=== PATIENT | male | born 1960 | race Caucasian/White ===

== ENCOUNTER 2020-10-20 09:40 | Inpatient (IN) | payer BC ==
[2020-10-16 11:32] LABS: Basophils # (auto) 0 10 ^3/uL (0-0.2); Basophils % (auto) 0.6 % (0.0-2.0); Eosinophils # (auto) 0.2 10 ^3/uL (0-0.8); Eosinophils % (auto) 2.7 % (0.0-7.0); Hematocrit 46.3 % (41.0-53.0); Hemoglobin 15.3 g/dL (13.5-17.5); Lymphocytes % (auto) 14.3 % (10.0-50.0); Mean Corpuscular Hemoglobin 29.1 pg (28.0-32.0); Mean Corpuscular Volume 88.2 fL (80.0-100.0); Monocytes # (auto) 0.7 10 ^3/uL (0-1.3); Monocytes % (auto) 9.2 % (0.0-12.0); Neutrophils # (auto) 5.3 10 ^3/uL (1.6-8.6); Neutrophils % (auto) 73.2 % (37.0-80.0); Platelet Count (auto) 218 10^3/uL (140-450); Red Blood Cells 5.25 10^6/uL (4.5-5.90); Red Cell Distribution Width 13.9 % (11.8-14.3); White Blood Cell 7.3 10^3/uL (4.4-10.8)
[2020-10-16 11:46] LABS: Urine Bacteria NONE SEEN /hpf (None Seen); Urine Blood 1+ /uL (Negative); Urine Specific Gravity 1.024 (1.001-1.035); Urine WBC 10 /hpf (0 - 3)
[2020-10-16 11:55] LABS: INR 0.97 (0.9-1.15); Partial Thromboplastin Time 27.3 sec (23.0-31.2)
[2020-10-16 12:30] LABS: Potassium 4.3 mmol/L (3.5-5.1)
[2020-10-16 12:53] LABS: Albumin 3.3 g/dL (3.4-5.0); Bilirubin, Total 0.3 mg/dL (0.2-1.0); Total Protein 7.2 g/dL (6.4-8.2)
[~2020-10-20] VITALS: Ht 188 cm; Wt 94.3 kg
[~2020-10-20 09:40] MED LIST: LISI-648 PO; METO-169 PO
[2020-10-20] MEDS ORDERED: LIDOCAINE W/ EPINEPHRINE 1% 20ML VIAL ONE (10:31)
[2020-10-20] MEDS ORDERED: BUPIVACAINE 0.25% INJ 50ML VIAL ONE (10:32)
[2020-10-20] MEDS ORDERED: CLINDAMYCIN 600MG IV 50 ML IV ONE (10:50)
[2020-10-20] MEDS ORDERED: LIDOCAINE 1% (LOCAL ANESTH.) PF 5ml SDV ONE (11:38)
[2020-10-20] MEDS ORDERED: SUCCINYLCHOLINE CHLORIDE 20 MG/ML 10ML VIAL IV ONE (11:39)
[2020-10-20] MEDS ORDERED: MIDAZOLAM HCL 1MG/1ML-2 ML VIAL ONE (11:42)
[2020-10-20] MEDS ORDERED: METOCLOPRAMIDE HCL 5MG/ml INJ 2ml VIAL ONE (11:43)
[2020-10-20] MEDS ORDERED: ETOMIDATE (2MG/ML) 20ML VIAL IV ONE (11:44)
[2020-10-20] MEDS ORDERED: ROCURONIUM 10MG/ML 10ML VIAL IV ONE (11:44)
[2020-10-20] MEDS ORDERED: ACETAMINOPHEN/CODEINE#3 (300/30mg) TAB PO PRN (11:45)
[2020-10-20] MEDS ORDERED: NITROGLYCERIN 0.4 MG SL TAB SL PRN (11:45)
[2020-10-20] MEDS ORDERED: D5W/SOD CHL 0.45% 1,000 ML IV SCH (11:45)
[2020-10-20] MEDS ORDERED: ONDANSETRON HCL 4 MG/2 ML VIAL IV PRN ×2 (11:45→12:15)
[2020-10-20] MEDS ORDERED: diphenhdrAMINE HCL 50 MG/1 ML VL IV PRN (11:45)
[2020-10-20] MEDS ORDERED: MORPHINE SULF INJ 2 MG/ML SYRINGE 1ML IV PRN (11:45)
[2020-10-20] MEDS ORDERED: fentaNYL CITRATE 100 MCG/2 ML VL ONE (11:54)
[2020-10-20] MEDS ORDERED: hydrALAZINE HCL 20 MG/ML VL IV PRN (12:15)
[2020-10-20] MEDS ORDERED: NALOXONE HCL 0.4 MG/ML VIAL IV PRN (12:15)
[2020-10-20] MEDS ORDERED: HYDROmorphone HCL 2 MG/ML VL IV PRN ×2 (12:15)
[2020-10-20] MEDS ORDERED: MEPERIDINE HCL (25 MG/ML) 1ML VIAL ONE (13:32)
[2020-10-20] MEDS ORDERED: NEOSTIGMINE 1 MG/ML INJ (10mg/10ML VIAL) ONE (13:57)
[2020-10-20] MEDS ORDERED: GLYCOPYRROLATE 0.2 MG/ML 1ML VIAL ONE (13:57)
[2020-10-20] MEDS ORDERED: ALBUTEROL SULF 2.5 MG/0.5ML(0.5%) NEB SOLN ONE (14:33)
[2020-10-20] MEDS ORDERED: ALBUTEROL SULF 2.5 MG/0.5ML(0.5%) NEB SOLN NEB ONE (14:45)
[2020-10-20 19:55] VITALS: BP 137/66
[2020-10-20 21:39] LABS: BUN/Creatinine Ratio 14.8; Calcium 8.3 mg/dL (8.5-10.1); Potassium 4.6 mmol/L (3.5-5.1)
[2020-10-20 22:00] VITALS: BP 137/66
[2020-10-20] MEDS ORDERED: LISINOPRIL 10 MG TAB PO SCH (22:00)
[2020-10-20] MEDS: HYDROmorphone HCL 2 MG/ML VL IV PRN (23:15)
[2020-10-21] MEDS: HYDROmorphone HCL 2 MG/ML VL IV PRN ×5 (02:05→16:24)
[2020-10-21 05:00] VITALS: BP 105/51
[2020-10-21 08:54] VITALS: BP 96/42
[2020-10-21 09:50] VITALS: BP 104/61
[2020-10-21] MEDS ORDERED: METOPROLOL SUCCINATE XL 50 MG TAB PO SCH (10:00)
[2020-10-21 13:00] VITALS: BP 102/58
[2020-10-21 14:27] VITALS: BP 109/64
== END 2020-10-21 16:45 | disposition home or self-care (01) | DRG 658 ==
LOC: OVERFLOW 09:40 → EDSTATUS 10:45 → TELE-WESTW 20:08
PROVIDERS: ADMIT Urology; ATTEND Urology
PROC: 0TT04ZZ Resection of Right Kidney, Percutaneous Endoscopic Approach (ICD-10-PCS; principal; 2020-10-21)
PROC: 8E0W4CZ Robotic Assisted Procedure of Trunk Region, Percutaneous Endoscopic Approach (ICD-10-PCS; 2020-10-21)
DX: C64.1 Malignant neoplasm of right kidney, except renal pelvis (principal); I95.9 Hypotension, unspecified; I10 Essential (primary) hypertension; Z88.8 Allergy status to other drugs, medicaments and biological substances
CPT/HCPCS: 36415; 80048; 80053; 81001; 85025; 85610; 85730; 86850; 86900; 86901; 87086; 94640; A4565; G0378; J0330; J2250; J2405; J3490; J7060